=== PATIENT | male | born 1960 | race African-American/Black ===

== ENCOUNTER 2016-12-05 08:41 | Inpatient (IN) | payer BC ==
[~2016-12-05] VITALS: Ht 167.6 cm; Wt 64.9 kg
[2016-12-05 08:41] VITALS: BP 184/102; PULSE 68; RESP 15; TEMP 97.7; O2SAT 100
[2016-12-05] MEDS ORDERED: VALS320T10 PO (08:49)
[2016-12-05] MEDS ORDERED: NACL 0.9% 1,000 ML IV ONE (08:51)
[2016-12-05 09:13] LABS: BASOPHILS % (AUTO) 0.7 % (0.0-2.0); EOSINOPHILS % (AUTO) 0.9 % (0.0-4.0); HEMATOCRIT 42.1 % (36-54); HEMOGLOBIN 14.3 g/dL (14.0-18.0); LYMPHOCYTES # (AUTO) 1.2 K/uL (1.0-5.5); LYMPHOCYTES % (AUTO) 30.8 % (20.5-51.5); MEAN CORPUSCULAR HEMOGLOBIN 32 pg (27-31); MEAN CORPUSCULAR HGB CONC 34 % (32-36); MEAN CORPUSCULAR VOLUME 94 fL (79.0-98.0); MONOCYTES # (AUTO) 0.3 K/uL (0.0-1.0); MONOCYTES % (AUTO) 6.7 % (1.7-9.3); NEUTROPHILS # (AUTO) 2.5 K/uL (1.8-7.7); NEUTROPHILS % (AUTO) 60.9 % (40.0-70.0); PLATELET COUNT (AUTO) 131 K/uL (130-430); RED BLOOD CELL COUNT(AUTO) 4.46 MIL/uL (4.2-6.2); RED CELL DISTRIBUTION WIDTH 12.5 % (9.0-15.0)
[2016-12-05 09:21] LABS: CALCIUM 9.2 mg/dL (8.4-11.0); CREATININE 1.12 mg/dL (0.55-1.30); POTASSIUM 3.7 mmol/L (3.5-5.1)
[2016-12-05 09:24] LABS: INR 1.4 (0.80-1.20)
[2016-12-05 09:27] LABS: ALBUMIN 3.2 g/dL (3.4-4.8); TOTAL BILIRUBIN 1.4 mg/dL (0.0-1.0); TOTAL PROTEIN, SERUM 7.7 g/dL (6.4-8.3)
[2016-12-05 09:50] LABS: BILIRUBIN,URINE NEGATIVE (NEGATIVE); BLOOD, URINE NEGATIVE (NEGATIVE); CLARITY/URINE CLEAR (CLEAR); COLOR,URINE YELLOW (YELLOW); GLUCOSE,URINE NEGATIVE (NEGATIVE); KETONES,URINE NEGATIVE (NEGATIVE); LEUKOCYTE ESTERASE ,URINE NEGATIVE (NEGATIVE); NITRITE, URINE NEGATIVE (NEGATIVE); PROTEIN URINE NEGATIVE (NEGATIVE); UROBILINOGEN,URINE 0.2 (0.2-1.0)
[2016-12-05] MEDS ORDERED: ONDANSETRON HCL 4 MG/2 ML VIAL IVP PRN (11:30)
[2016-12-05] MEDS: D5/0.45 NS 1,000 ML IV SCH ×2 (11:50→23:06)
[2016-12-05 16:20] VITALS: BP 170/91; PULSE 71; RESP 16; TEMP 98.2; O2SAT 100
[2016-12-05 19:50] VITALS: BP 160/93; PULSE 75; RESP 16; TEMP 98.2; O2SAT 100
[2016-12-06] VITALS: BP 177/90; PULSE 63; RESP 17; TEMP 97.4; O2SAT 99
[2016-12-06] MEDS: ENALAPRILAT DIHYDRATE 1.25 MG/ML VIAL IVP PRN ×2 (00:53→23:02)
[2016-12-06 03:52] VITALS: BP 183/92; PULSE 64; RESP 17; TEMP 97.6; O2SAT 100
[2016-12-06 07:16] LABS: INR 1.3 (0.80-1.20); PROTHROMBIN TIME 13.8 SECS (9.5-12.5)
[2016-12-06 07:21] LABS: ALBUMIN 2.8 g/dL (3.4-4.8); CALCIUM 8.3 mg/dL (8.4-11.0); CREATININE 1.09 mg/dL (0.55-1.30); POTASSIUM 3.4 mmol/L (3.5-5.1); TOTAL BILIRUBIN 1.6 mg/dL (0.0-1.0); TOTAL PROTEIN, SERUM 6.9 g/dL (6.4-8.3)
[2016-12-06 07:30] LABS: BASOPHILS % (AUTO) 0.6 % (0.0-2.0); EOSINOPHILS # (AUTO) 0.1 K/uL (0.0-0.4); EOSINOPHILS % (AUTO) 2.2 % (0.0-4.0); HEMATOCRIT 37.2 % (36-54); HEMOGLOBIN 13.2 g/dL (14.0-18.0); LYMPHOCYTES # (AUTO) 1.4 K/uL (1.0-5.5); LYMPHOCYTES % (AUTO) 32.5 % (20.5-51.5); MEAN CORPUSCULAR HEMOGLOBIN 33 pg (27-31); MEAN CORPUSCULAR HGB CONC 36 % (32-36); MEAN CORPUSCULAR VOLUME 92 fL (79.0-98.0); MONOCYTES # (AUTO) 0.4 K/uL (0.0-1.0); MONOCYTES % (AUTO) 9.7 % (1.7-9.3); NEUTROPHILS # (AUTO) 2.6 K/uL (1.8-7.7); PLATELET COUNT (AUTO) 112 K/uL (130-430); RED BLOOD CELL COUNT(AUTO) 4.03 MIL/uL (4.2-6.2); RED CELL DISTRIBUTION WIDTH 12.4 % (9.0-15.0); WHITE BLOOD COUNT (AUTO) 4.5 K/uL (4.8-10.8)
[2016-12-06 08:00] VITALS: BP 163/94; PULSE 62; RESP 18; TEMP 99; O2SAT 98
[2016-12-06] MEDS: VALSARTAN 160 MG TABLET (DIOVAN) PO SCH (08:20)
[2016-12-06] MEDS ORDERED: cloNIDine HCL 0.2 MG/24 HR PATCH.TDWK TD SCH (09:00)
[2016-12-06] MEDS: D5/0.45 NS 1,000 ML IV SCH ×2 (09:04→17:30)
[2016-12-06 09:47] VITALS: BP 163/94; PULSE 62; RESP 16; TEMP 99; O2SAT 98
[2016-12-06] MEDS: MIDAZOLAM HCL 5 MG/5 ML VIAL ONE ×4 (10:47→11:42)
[2016-12-06] MEDS: MEPERIDINE HCL/PF 100 MG/ML AMP ONE ×2 (10:47→11:42)
[2016-12-06] MEDS ORDERED: PANTOPRAZOLE SODIUM 40 MG/VIAL (PROTONIX) IVP ONE (11:15)
[2016-12-06] MEDS: metroNIDAZOLE 500 MG TABLET PO SCH ×3 (12:08→23:43)
[2016-12-06 12:55] VITALS: Ht 167.6 cm; Wt 64.9 kg
[2016-12-06 16:00] VITALS: BP 142/86; PULSE 83; RESP 21; TEMP 98.4; O2SAT 97
[2016-12-06 20:00] VITALS: BP 163/82; PULSE 68; RESP 18; TEMP 98.6; O2SAT 99
[2016-12-07 00:33] VITALS: BP 148/88; PULSE 63; RESP 20; TEMP 97.8; O2SAT 100
[2016-12-07 04:27] VITALS: BP 155/85; PULSE 58; RESP 20; TEMP 97.9; O2SAT 100
[2016-12-07] MEDS: metroNIDAZOLE 500 MG TABLET PO SCH (06:36)
[2016-12-07 07:19] LABS: BASOPHILS % (AUTO) 0.7 % (0.0-2.0); EOSINOPHILS # (AUTO) 0.2 K/uL (0.0-0.4); EOSINOPHILS % (AUTO) 2.2 % (0.0-4.0); HEMATOCRIT 40.1 % (36-54); HEMOGLOBIN 13.8 g/dL (14.0-18.0); LYMPHOCYTES # (AUTO) 2.1 K/uL (1.0-5.5); LYMPHOCYTES % (AUTO) 29.8 % (20.5-51.5); MEAN CORPUSCULAR HEMOGLOBIN 32 pg (27-31); MEAN CORPUSCULAR HGB CONC 34 % (32-36); MEAN CORPUSCULAR VOLUME 94 fL (79.0-98.0); MONOCYTES # (AUTO) 0.7 K/uL (0.0-1.0); MONOCYTES % (AUTO) 9.4 % (1.7-9.3); NEUTROPHILS % (AUTO) 57.9 % (40.0-70.0); PLATELET COUNT (AUTO) 112 K/uL (130-430); RED BLOOD CELL COUNT(AUTO) 4.27 MIL/uL (4.2-6.2); RED CELL DISTRIBUTION WIDTH 12.4 % (9.0-15.0)
[2016-12-07 07:57] VITALS: BP 148/97; PULSE 85; RESP 18; TEMP 97.8; O2SAT 100
[2016-12-07 08:02] LABS: BILIRUBIN,DIRECT 0.5 mg/dL (0.0-0.3); CALCIUM 8.7 mg/dL (8.4-11.0); CREATININE 0.92 mg/dL (0.55-1.30); POTASSIUM 3.7 mmol/L (3.5-5.1); TOTAL BILIRUBIN 1.4 mg/dL (0.0-1.0); TOTAL PROTEIN, SERUM 6.7 g/dL (6.4-8.3)
[2016-12-07 08:21] VITALS: BP 148/97; PULSE 85; RESP 18; TEMP 97.8; O2SAT 100
[2016-12-07] MEDS: VALSARTAN 160 MG TABLET (DIOVAN) PO SCH (08:56)
[2016-12-07] MEDS ORDERED: PANTOPRAZOLE SODIUM 40 MG/VIAL (PROTONIX) IVP SCH (09:00)
[2016-12-07 09:09] LABS: HEPATITIS A AB, IgM Negative (Negative); HEPATITIS B CORE AB, IgM Negative (Negative); HEPATITIS B SURFACE AG Negative (Negative)
[2016-12-07 12:42] VITALS: BP 152/88; PULSE 69; RESP 16; TEMP 99.3; O2SAT 99
[2016-12-07] MEDS ORDERED: METR500T PO (12:59)
[2016-12-07] MEDS ORDERED: PRO40 PO (12:59)
[2016-12-07] MEDS ORDERED: LACT1CAP55 PO (13:01)
[2016-12-07 13:05] VITALS: BP 152/88; PULSE 69; RESP 16; TEMP 99.3; O2SAT 99
[2016-12-07 13:36] LABS: FERRITIN 2357 ng/mL (30-400)
== END 2016-12-07 13:45 | disposition home or self-care (01) | DRG 372 ==
LOC: SED 08:41 → SMU 10:28
PROVIDERS: ADMIT Internal Medicine; ATTEND Internal Medicine
PROC: 0DB68ZX Excision of Stomach, Via Natural or Artificial Opening Endoscopic, Diagnostic (ICD-10-PCS; 2016-12-06)
PROC: 0DB98ZX Excision of Duodenum, Via Natural or Artificial Opening Endoscopic, Diagnostic (ICD-10-PCS; principal; 2016-12-06 10:45)
DX: A04.7 Enterocolitis due to Clostridium difficile (principal); E44.0 Moderate protein-calorie malnutrition; K29.00 Acute gastritis without bleeding; E11.9 Type 2 diabetes mellitus without complications; I10 Essential (primary) hypertension; K22.2 Esophageal obstruction
CPT/HCPCS: 36415; 43239; 76700-TC; 80048; 80053; 80074; 80076; 81003; 82105; 82150-TC; 82728; 83690-TC; 85025; 85610-TC; 85730-TC; 87081; 87230-TC; 88305; 88312; 88313; 96360; 99285; C9113; J2175; J2250; J7030

== ENCOUNTER 2017-03-24 21:03 | Emergency (ER) | payer BC ==
[~2017-03-24] VITALS: Ht 167.6 cm; Wt 59.0 kg
[2017-03-24 21:03] VITALS: BP_SYST 159
[~2017-03-24 21:03] MED LIST: LACT1CAP55 PO; METR500T PO; PRO40 PO; VALS320T10 PO
[2017-03-24] MEDS ORDERED: L.RH1CAP PO (21:11)
[2017-03-24 21:42] LABS: BASOPHILS # (AUTO) 0.1 K/uL (0.0-0.2); BASOPHILS % (AUTO) 1.5 % (0.0-2.0); EOSINOPHILS # (AUTO) 0.1 K/uL (0.0-0.4); EOSINOPHILS % (AUTO) 1.2 % (0.0-4.0); HEMATOCRIT 32.9 % (36-54); HEMOGLOBIN 11.2 g/dL (14.0-18.0); LYMPHOCYTES # (AUTO) 2.1 K/uL (1.0-5.5); LYMPHOCYTES % (AUTO) 48.6 % (20.5-51.5); MEAN CORPUSCULAR HEMOGLOBIN 32 pg (27-31); MEAN CORPUSCULAR HGB CONC 34 % (32-36); MEAN CORPUSCULAR VOLUME 95 fL (79.0-98.0); MONOCYTES # (AUTO) 0.4 K/uL (0.0-1.0); MONOCYTES % (AUTO) 8.7 % (1.7-9.3); NEUTROPHILS # (AUTO) 1.7 K/uL (1.8-7.7); PLATELET COUNT (AUTO) 151 K/uL (130-430); RED BLOOD CELL COUNT(AUTO) 3.46 MIL/uL (4.2-6.2); RED CELL DISTRIBUTION WIDTH 19.1 % (9.0-15.0); WHITE BLOOD COUNT (AUTO) 4.4 K/uL (4.8-10.8)
[2017-03-24 21:45] LABS: CALCIUM 8.4 mg/dL (8.4-11.0); CREATININE 1.19 mg/dL (0.55-1.30); POTASSIUM 3.6 mmol/L (3.5-5.1)
[2017-03-24 21:50] LABS: ALBUMIN 2.9 g/dL (3.4-4.8); TOTAL BILIRUBIN 1.5 mg/dL (0.0-1.0); TOTAL PROTEIN, SERUM 6.8 g/dL (6.4-8.3)
[2017-03-24] MEDS ORDERED: NACL 0.9% 1,000 ML IV ONE (22:15)
[2017-03-24 22:22] LABS: BILIRUBIN,URINE NEGATIVE (NEGATIVE); BLOOD, URINE NEGATIVE (NEGATIVE); CLARITY/URINE CLEAR (CLEAR); COLOR,URINE YELLOW (YELLOW); GLUCOSE,URINE 3+ (NEGATIVE); KETONES,URINE TRACE (NEGATIVE); LEUKOCYTE ESTERASE ,URINE NEGATIVE (NEGATIVE); NITRITE, URINE NEGATIVE (NEGATIVE); PROTEIN URINE TRACE (NEGATIVE)
[2017-03-24 22:25] LABS: RBC,URINE 0-3 /HPF (0-3); WBC,URINE 0-3 /HPF (0-3)
[2017-03-24 22:26] LABS: BACTERIA,URINE FEW /HPF (None Seen); FINE GRANULAR CASTS,URINE 0-10 /LPF (None Seen)
[2017-03-24 22:27] LABS: MUCUS,URINE None Seen /LPF (None Seen)
[2017-03-24 22:29] LABS: INR 1.4 (0.80-1.20); PROTHROMBIN TIME 14.8 SECS (9.5-12.5)
[2017-03-24 22:52] VITALS: BP_SYST 125
[2017-03-24 23:08] LABS: BARBITURATE, URINE NEGATIVE (NEG <=200); BENZODIAZEPINE, URINE NEGATIVE (NEG <=150); CANNABINOID, URINE NEGATIVE (NEG <=50); COCAINE, URINE NEGATIVE (NEG <=150); METHAMPHETAMINES SCREEN,URINE NEGATIVE (NEG <=500); OPIATE, URINE NEGATIVE (NEG <=100); PHENCYCLIDINE SCREEN,URINE NEGATIVE (NEG <=25); UR TRICYCLIC ANTIDEPRESSANTS NEGATIVE (NEG <=300); URINE AMPHETAMINE NEGATIVE (NEG <=500); URINE METHADONE NEGATIVE (NEG <=200); URINE OXYCODONE SCREEN NEGATIVE (NEG <=100); URINE PROPOXYPHENE SCREEN NEGATIVE (NEG <=300)
== END 2017-03-24 22:52 | disposition home or self-care (01) ==
LOC: SED 21:03
DX: K70.10 Alcoholic hepatitis without ascites (principal); R53.1 Weakness; F10.129 Alcohol abuse with intoxication, unspecified; E11.9 Type 2 diabetes mellitus without complications; I10 Essential (primary) hypertension; Y90.7 Blood alcohol level of 200-239 mg/100 ml
CPT/HCPCS: 36415; 71010; 80053; 80307; 81000; 82140; 85025; 85610; 85730; 96360; 99285; G0482; J7030

== ENCOUNTER 2018-08-05 09:47 | Inpatient (IN) | payer BC ==
[~2018-08-05] VITALS: Ht 167.6 cm; Wt 58.1 kg
[~2018-08-05 09:47] MED LIST changes: +CULTURELLE CAP1 EACH PO; +L.RH1CAP PO; -LACT1CAP55 PO; -METR500T PO; -PRO40 PO; -VALS320T10 PO; +VALS320T2 PO
[2018-08-05 09:53] VITALS: BP_SYST 142
[2018-08-05 10:14] LABS: BASOPHILS # (AUTO) 0.1 K/uL (0.0-0.2); BASOPHILS % (AUTO) 1.1 % (0.0-2.0); EOSINOPHILS % (AUTO) 0.1 % (0.0-4.0); HEMATOCRIT 36.6 % (36-54); HEMOGLOBIN 11.8 g/dL (14.0-18.0); LYMPHOCYTES # (AUTO) 1.1 K/uL (1.0-5.5); LYMPHOCYTES % (AUTO) 11.1 % (20.5-51.5); MEAN CORPUSCULAR HEMOGLOBIN 32 pg (27-31); MEAN CORPUSCULAR HGB CONC 32 % (32-36); MEAN CORPUSCULAR VOLUME 98 fL (79.0-98.0); MONOCYTES # (AUTO) 0.8 K/uL (0.0-1.0); MONOCYTES % (AUTO) 8.4 % (1.7-9.3); NEUTROPHILS # (AUTO) 7.7 K/uL (1.8-7.7); NEUTROPHILS % (AUTO) 79.3 % (40.0-70.0); PLATELET COUNT (AUTO) 117 K/uL (130-430); RED BLOOD CELL COUNT(AUTO) 3.75 MIL/uL (4.2-6.2); RED CELL DISTRIBUTION WIDTH 12.9 % (9.0-15.0); WHITE BLOOD COUNT (AUTO) 9.7 K/uL (4.8-10.8)
[2018-08-05 10:25] LABS: CALCIUM 8.6 mg/dL (8.4-11.0); CREATININE 0.79 mg/dL (0.55-1.30)
[2018-08-05 10:30] LABS: INR 1.1 (0.80-1.20); PROTHROMBIN TIME 10.9 SECS (9.5-12.5)
[2018-08-05 10:31] LABS: ALBUMIN 2.9 g/dL (3.4-4.8); TOTAL BILIRUBIN 0.9 mg/dL (0.0-1.0)
[2018-08-05] MEDS ORDERED: POTASSIUM CHLORIDE 20 MEQ TAB.PRT.SR PO ONE ×2 (11:30→14:00)
[2018-08-05] MEDS ORDERED: ASPI-1155 PO (12:48)
[2018-08-05] MEDS ORDERED: LOSA100T3 PO (12:48)
[2018-08-05] MEDS ORDERED: IND25 PO (12:48)
[2018-08-05] MEDS ORDERED: POTA8TAB4 PO (12:48)
[2018-08-05] MEDS ORDERED: COLC0.6T67 PO (12:48)
[2018-08-05] MEDS ORDERED: CANA100T PO (12:48)
[2018-08-05] MEDS ORDERED: AMLO5TAB4 PO (12:48)
[2018-08-05 13:02] VITALS: BP_SYST 146
[2018-08-05 14:24] VITALS: BP_SYST 151
[2018-08-05] MEDS: INSULIN REGULAR, HUMAN 100 UNITS/ML, 10 ML VIAL (novoLIN R) SUBCUT PRN ×2 (15:56→22:06)
[2018-08-05 16:00] VITALS: BP_SYST 150
[2018-08-05] MEDS ORDERED: LORazepam 1 MG TABLET PO PRN (17:45)
[2018-08-05] MEDS ORDERED: cloNIDine HCL 0.1 MG TABLET PO PRN (17:45)
[2018-08-05] MEDS ORDERED: amLODIPine BESYLATE 5 MG TABLET PO ONE (17:45)
[2018-08-05] MEDS ORDERED: IBUPROFEN 800 MG TABLET PO PRN (18:00)
[2018-08-05] MEDS ORDERED: ONDANSETRON HCL 4 MG/2 ML VIAL IVP PRN (18:15)
[2018-08-05 20:00] VITALS: BP_SYST 154
[2018-08-05] MEDS: PIPERACILLIN/TAZO 3.375/DEX-IS 50 ML IV SCH (20:13)
[2018-08-05 21:20] LABS: BILIRUBIN,URINE NEGATIVE (NEGATIVE); CLARITY/URINE CLEAR (CLEAR); COLOR,URINE YELLOW (YELLOW); GLUCOSE,URINE NEGATIVE (NEGATIVE); KETONES,URINE NEGATIVE (NEGATIVE); LEUKOCYTE ESTERASE ,URINE NEGATIVE (NEGATIVE); NITRITE, URINE NEGATIVE (NEGATIVE); PROTEIN URINE NEGATIVE (NEGATIVE)
[2018-08-05 21:23] LABS: BLOOD, URINE TRACE (NEGATIVE)
[2018-08-05 21:28] LABS: BACTERIA,URINE RARE /HPF (None Seen); RBC,URINE 0-3 /HPF (0-3); WBC,URINE 0-3 /HPF (0-3)
[2018-08-05 21:30] LABS: BARBITURATE, URINE NEGATIVE (NEG <=200); BENZODIAZEPINE, URINE NEGATIVE (NEG <=150); CANNABINOID, URINE POSITIVE (NEG <=50); COCAINE, URINE NEGATIVE (NEG <=150); METHAMPHETAMINES SCREEN,URINE NEGATIVE (NEG <=500); OPIATE, URINE NEGATIVE (NEG <=100); PHENCYCLIDINE SCREEN,URINE NEGATIVE (NEG <=25); UR TRICYCLIC ANTIDEPRESSANTS NEGATIVE (NEG <=300); URINE AMPHETAMINE NEGATIVE (NEG <=500); URINE METHADONE NEGATIVE (NEG <=200); URINE OXYCODONE SCREEN NEGATIVE (NEG <=100); URINE PROPOXYPHENE SCREEN NEGATIVE (NEG <=300)
[2018-08-05] MEDS: FAMOTIDINE 20 MG TABLET PO SCH (22:01)
[2018-08-05] MEDS: chlordiazePOXIDE HCL 25 MG CAPSULE PO SCH (22:01)
[2018-08-05] MEDS: ENOXAPARIN SODIUM 30 MG/0.3 ML SYRINGE SUBCUT SCH (22:03)
[2018-08-06 00:07] VITALS: BP_SYST 143
[2018-08-06] MEDS: PIPERACILLIN/TAZO 3.375/DEX-IS 50 ML IV SCH ×4 (00:27→17:04)
[2018-08-06 06:59] LABS: BASOPHILS % (AUTO) 0.5 % (0.0-2.0); EOSINOPHILS % (AUTO) 0.4 % (0.0-4.0); HEMATOCRIT 37.8 % (36-54); HEMOGLOBIN 12.3 g/dL (14.0-18.0); LYMPHOCYTES # (AUTO) 1.4 K/uL (1.0-5.5); LYMPHOCYTES % (AUTO) 14.1 % (20.5-51.5); MEAN CORPUSCULAR HEMOGLOBIN 32 pg (27-31); MEAN CORPUSCULAR HGB CONC 33 % (32-36); MEAN CORPUSCULAR VOLUME 99 fL (79.0-98.0); MONOCYTES % (AUTO) 9.6 % (1.7-9.3); NEUTROPHILS # (AUTO) 7.5 K/uL (1.8-7.7); NEUTROPHILS % (AUTO) 75.4 % (40.0-70.0); PLATELET COUNT (AUTO) 124 K/uL (130-430); RED BLOOD CELL COUNT(AUTO) 3.82 MIL/uL (4.2-6.2); WHITE BLOOD COUNT (AUTO) 9.9 K/uL (4.8-10.8)
[2018-08-06 07:35] LABS: CALCIUM 9.3 mg/dL (8.4-11.0); CREATININE 0.95 mg/dL (0.55-1.30); POTASSIUM 3.8 mmol/L (3.5-5.1)
[2018-08-06 07:45] VITALS: BP_SYST 140
[2018-08-06 07:54] LABS: THYROID STIMULATING HORMONE 1.61 uIu/mL (0.36-3.74)
[2018-08-06] MEDS: ASPIRIN 81 MG TAB.CHEW PO SCH (09:12)
[2018-08-06] MEDS: POTASSIUM CHLORIDE 20 MEQ TAB.PRT.SR PO SCH (09:12)
[2018-08-06] MEDS: chlordiazePOXIDE HCL 25 MG CAPSULE PO SCH ×3 (09:12→20:25)
[2018-08-06] MEDS: FAMOTIDINE 20 MG TABLET PO SCH ×2 (09:13→20:25)
[2018-08-06] MEDS: amLODIPine BESYLATE 5 MG TABLET PO SCH (09:13)
[2018-08-06] MEDS: LOSARTAN POTASSIUM 50 MG TABLET (COZAAR) PO SCH (09:14)
[2018-08-06] MEDS: CANAGLIFLOZIN 100 MG TABLET PO SCH (09:15)
[2018-08-06 12:02] VITALS: BP_SYST 115
[2018-08-06 16:02] VITALS: BP_SYST 114
[2018-08-06 19:05] VITALS: BP_SYST 118
[2018-08-06] MEDS: ENOXAPARIN SODIUM 30 MG/0.3 ML SYRINGE SUBCUT SCH (20:27)
[2018-08-06] MEDS: INSULIN REGULAR, HUMAN 100 UNITS/ML, 10 ML VIAL (novoLIN R) SUBCUT PRN (20:31)
[2018-08-06 23:23] VITALS: BP_SYST 125
[2018-08-07] MEDS: PIPERACILLIN/TAZO 3.375/DEX-IS 50 ML IV SCH ×3 (00:22→11:27)
[2018-08-07 07:42] VITALS: BP_SYST 123
[2018-08-07] MEDS: POTASSIUM CHLORIDE 20 MEQ TAB.PRT.SR PO SCH (08:11)
[2018-08-07] MEDS: chlordiazePOXIDE HCL 25 MG CAPSULE PO SCH (08:11)
[2018-08-07] MEDS: ASPIRIN 81 MG TAB.CHEW PO SCH (08:12)
[2018-08-07] MEDS: FAMOTIDINE 20 MG TABLET PO SCH (08:12)
[2018-08-07] MEDS: amLODIPine BESYLATE 5 MG TABLET PO SCH (08:12)
[2018-08-07] MEDS: LOSARTAN POTASSIUM 50 MG TABLET (COZAAR) PO SCH (08:12)
[2018-08-07] MEDS: CANAGLIFLOZIN 100 MG TABLET PO SCH (08:13)
[2018-08-07 11:42] VITALS: BP_SYST 110
[2018-08-07 14:01] VITALS: BP_SYST 110
[2018-08-07] MEDS ORDERED: AMOX-426 PO (14:10)
== END 2018-08-07 14:30 | disposition home or self-care (01) | DRG 308 ==
LOC: SED 09:47 → STU 12:35
PROVIDERS: ADMIT Internal Medicine; ATTEND Internal Medicine
DX: I49.9 Cardiac arrhythmia, unspecified (principal); E43 Unspecified severe protein-calorie malnutrition; R55 Syncope and collapse; M10.9 Gout, unspecified; D64.9 Anemia, unspecified; D69.6 Thrombocytopenia, unspecified; E03.9 Hypothyroidism, unspecified; E11.9 Type 2 diabetes mellitus without complications; E87.6 Hypokalemia; I10 Essential (primary) hypertension; F10.10 Alcohol abuse, uncomplicated; K02.9 Dental caries, unspecified; K04.7 Periapical abscess without sinus; Z68.20 Body mass index [BMI] 20.0-20.9, adult; Z79.899 Other long term (current) drug therapy
CPT/HCPCS: 36415; 70450-TC; 70486-TC; 71045; 72125-TC; 80048; 80053; 80307; 81000-TC; 82550-TC; 82962; 84439; 84443-TC; 84484; 85025; 85610-TC; 85730-TC; 93005; 93306; 99285; G0482; J1650; J1815; J2543; J7050

== ENCOUNTER 2020-10-05 20:49 | Emergency (ER) | payer BC ==
[~2020-10-05] VITALS: Ht 167.6 cm; Wt 70.3 kg
[~2020-10-05 20:49] MED LIST changes: +AMLO5TAB4 PO; +AMOX-426 PO; +ASPI-1155 PO; +CANA100T PO; +COLC0.6T67 PO; -CULTURELLE CAP1 EACH PO; +INDO-12 PO; -L.RH1CAP PO; +LOSA100T3 PO; +POTA8TAB4 PO; -VALS320T2 PO
[2020-10-05 21:10] VITALS: BP_SYST 142
--- NOTE | 2020-10-05 21:10 | NUR ---
PT TO REMAIN IN CARE AMBULANCE UNTIL ED BED AVAILABLE
--- NOTE | 2020-10-05 21:12 | NUR ---
BS 196, Dr. Mckinney notified.
--- NOTE | 2020-10-05 21:12 | NUR ---
ED MD CAZARES EVALUATING PT IN AMBULANCE
[2020-10-05] MEDS ORDERED: INSULIN REGULAR, HUMAN 10 UNITS/0.1 ML INJ SUBCUT ONE ×2 (21:15→21:45)
[2020-10-05 21:46] LABS: BASOPHILS # (AUTO) 0.1 K/uL (0.0-0.2); BASOPHILS % (AUTO) 1.7 % (0.0-2.0); EOSINOPHILS # (AUTO) 0.1 K/uL (0.0-0.4); EOSINOPHILS % (AUTO) 2.6 % (0.0-4.0); HEMATOCRIT 38.7 % (36-54); HEMOGLOBIN 12.9 g/dL (14.0-18.0); LYMPHOCYTES % (AUTO) 41.8 % (20.5-51.5); MEAN CORPUSCULAR HEMOGLOBIN 35 pg (27-31); MEAN CORPUSCULAR HGB CONC 33 % (32-36); MEAN CORPUSCULAR VOLUME 105 fL (79.0-98.0); MONOCYTES # (AUTO) 0.6 K/uL (0.0-1.0); MONOCYTES % (AUTO) 11.7 % (1.7-9.3); NEUTROPHILS % (AUTO) 42.2 % (40.0-70.0); PLATELET COUNT (AUTO) 144 K/uL (130-430); RED CELL DISTRIBUTION WIDTH 14.9 % (9.0-15.0); WHITE BLOOD COUNT (AUTO) 4.8 K/uL (4.8-10.8)
[2020-10-05 22:01] LABS: ACETONE, SERUM NEGATIVE (NEGATIVE); ANION GAP 14 (5-15); CALCIUM 8.7 mg/dL (8.4-11.0); CHLORIDE 105 mmol/L (98-107); CREATININE 1.23 mg/dL (0.55-1.30); GLUCOSE 202 mg/dL (70-99); POTASSIUM 3.5 mmol/L (3.5-5.1); SODIUM SERUM 147 mmol/L (136-145); UREA NITROGEN, BLOOD 13 mg/dL (8-21)
[2020-10-05 22:09] LABS: ALANINE AMINOTRANSFERASE 53 U/L (12-78); ALBUMIN 3.2 g/dL (3.4-4.8); ALCOHOL, BLOOD 361 mg/dL (<10); ASPARTATE AMINOTRANSFERASE 92 U/L (10-37); TOTAL BILIRUBIN 0.4 mg/dL (0.0-1.0)
--- NOTE | 2020-10-05 22:22 | NUR ---
BS 158.
--- NOTE | 2020-10-05 23:45 | NUR ---
SPOKE WITH PATIENTS SPOUSE WHO ASKED FOR A CAB TO BE CALLED TO BRING PT HOME. PT ALERT AND ORIENTED AND UNABLE TO HAVE FAMILY COME GET HIM.
--- NOTE | 2020-10-05 23:50 | NUR ---
PT GAIT STEADY, PT TO BE DISCHARGED, WAITING FOR CAB
[2020-10-05 23:55] VITALS: BP_SYST 142
--- NOTE | 2020-10-05 23:55 | NUR ---
Patient given written and verbal discharge instructions and verbalizes understanding. DR. FLORIAN LYONS MD discussed with patient the results and treatment provided. Patient in stable condition. ID arm band removed. Patient educated on pain management and to follow up with PMD. Pain Scale 0/10. Opportunity for questions provided and answered. Medication side effect fact sheet provided.
[2020-10-06] MEDS ORDERED: FAMOTIDINE 20 MG TABLET ONE (09:00)
[2020-10-06] MEDS ORDERED: DEXAMETHASONE SOD PHOSPHATE 10 MG/ML VIAL ONE (09:00)
== END 2020-10-05 23:55 | disposition home or self-care (01) ==
LOC: SED 20:49
DX: F10.129 Alcohol abuse with intoxication, unspecified (principal); E11.65 Type 2 diabetes mellitus with hyperglycemia; I10 Essential (primary) hypertension; Z79.899 Other long term (current) drug therapy
CPT/HCPCS: 70450; 36415; 76376; 80053; 82009; 85025; 96372; 99284; G0482; J1815; J1100

== ENCOUNTER 2021-01-04 08:26 | Emergency (ER) | payer BC ==
[~2021-01-04] VITALS: Ht 165.1 cm; Wt 72.6 kg
[2021-01-04 08:26] VITALS: BP_SYST 144
[2021-01-04 09:21] LABS: BASOPHILS # (AUTO) 0.1 K/uL (0.0-0.2); BASOPHILS % (AUTO) 2.8 % (0.0-2.0); EOSINOPHILS # (AUTO) 0.1 K/uL (0.0-0.4); EOSINOPHILS % (AUTO) 1.8 % (0.0-4.0); HEMATOCRIT 37.7 % (36-54); HEMOGLOBIN 12.5 g/dL (14.0-18.0); LYMPHOCYTES # (AUTO) 1.4 K/uL (1.0-5.5); LYMPHOCYTES % (AUTO) 34.9 % (20.5-51.5); MEAN CORPUSCULAR HEMOGLOBIN 34 pg (27-31); MEAN CORPUSCULAR HGB CONC 33 % (32-36); MEAN CORPUSCULAR VOLUME 103 fL (79.0-98.0); MONOCYTES # (AUTO) 0.4 K/uL (0.0-1.0); NEUTROPHILS # (AUTO) 1.9 K/uL (1.8-7.7); NEUTROPHILS % (AUTO) 49.5 % (40.0-70.0); PLATELET COUNT (AUTO) 114 K/uL (130-430); RED BLOOD CELL COUNT(AUTO) 3.67 MIL/uL (4.2-6.2); RED CELL DISTRIBUTION WIDTH 13.7 % (9.0-15.0); WHITE BLOOD COUNT (AUTO) 3.9 K/uL (4.8-10.8)
[2021-01-04 09:45] LABS: CALCIUM 8.8 mg/dL (8.4-11.0); CREATININE 1.22 mg/dL (0.55-1.30); POTASSIUM 3.7 mmol/L (3.5-5.1); TOTAL BILIRUBIN 1.1 mg/dL (0.0-1.0)
[2021-01-04 09:46] LABS: ALBUMIN 3.3 g/dL (3.4-4.8)
[2021-01-04 14:46] VITALS: BP_SYST 154
== END 2021-01-04 14:46 | disposition home or self-care (01) ==
LOC: SED 08:26
DX: R55 Syncope and collapse (principal); F10.129 Alcohol abuse with intoxication, unspecified; I10 Essential (primary) hypertension; E11.9 Type 2 diabetes mellitus without complications; Z79.899 Other long term (current) drug therapy
CPT/HCPCS: 36415; 70450; 71045; 76376; 80053; 82550; 83880; 84484; 85025; 93005; 99285; G0482

== ENCOUNTER 2021-07-21 12:37 | Emergency (ER) | payer SELFPAY ==
[~2021-07-21] VITALS: Ht 167.6 cm; Wt 63.5 kg
[2021-07-21 12:39] VITALS: BP_SYST 127
--- NOTE | 2021-07-21 13:04 | NUR ---
Patient to ER bed H1 to gown for evaluation. Side rails up.
[2021-07-21 13:05] LABS: BASOPHILS # (AUTO) 0.1 K/uL (0.0-0.2); BASOPHILS % (AUTO) 3.8 % (0.0-2.0); EOSINOPHILS # (AUTO) 0.1 K/uL (0.0-0.4); EOSINOPHILS % (AUTO) 2.9 % (0.0-4.0); HEMOGLOBIN 13.7 g/dL (14.0-18.0); LYMPHOCYTES # (AUTO) 1.9 K/uL (1.0-5.5); LYMPHOCYTES % (AUTO) 48.9 % (20.5-51.5); MEAN CORPUSCULAR HEMOGLOBIN 35 pg (27-31); MEAN CORPUSCULAR HGB CONC 33 % (32-36); MEAN CORPUSCULAR VOLUME 104 fL (79.0-98.0); MONOCYTES # (AUTO) 0.5 K/uL (0.0-1.0); MONOCYTES % (AUTO) 11.9 % (1.7-9.3); NEUTROPHILS # (AUTO) 1.3 K/uL (1.8-7.7); NEUTROPHILS % (AUTO) 32.5 % (40.0-70.0); PLATELET COUNT (AUTO) 121 K/uL (130-430); RED BLOOD CELL COUNT(AUTO) 3.93 MIL/uL (4.2-6.2); RED CELL DISTRIBUTION WIDTH 13.9 % (9.0-15.0); WHITE BLOOD COUNT (AUTO) 3.9 K/uL (4.8-10.8)
[2021-07-21 13:15] LABS: CALCIUM 9.2 mg/dL (8.4-11.0); CREATININE 1.24 mg/dL (0.55-1.30); POTASSIUM 3.2 mmol/L (3.5-5.1)
[2021-07-21 13:19] LABS: INR 1.2 (0.80-1.20); PROTHROMBIN TIME 12.1 SECS (9.5-12.5)
[2021-07-21 13:22] LABS: ALBUMIN 3.3 g/dL (3.4-4.8); TOTAL BILIRUBIN 0.9 mg/dL (0.0-1.0)
[2021-07-21 13:31] LABS: BILIRUBIN,URINE NEGATIVE (NEGATIVE); BLOOD, URINE NEGATIVE (NEGATIVE); CLARITY/URINE CLEAR (CLEAR); COLOR,URINE YELLOW (YELLOW); GLUCOSE,URINE 3+ (NEGATIVE); KETONES,URINE NEGATIVE (NEGATIVE); LEUKOCYTE ESTERASE ,URINE NEGATIVE (NEGATIVE); NITRITE, URINE NEGATIVE (NEGATIVE); PROTEIN URINE NEGATIVE (NEGATIVE)
[2021-07-21 13:46] LABS: BARBITURATE, URINE NEGATIVE (NEG <=200); BENZODIAZEPINE, URINE NEGATIVE (NEG <=150); CANNABINOID, URINE NEGATIVE (NEG <=50); COCAINE, URINE NEGATIVE (NEG <=150); METHAMPHETAMINES SCREEN,URINE NEGATIVE (NEG <=500); OPIATE, URINE NEGATIVE (NEG <=100); PHENCYCLIDINE SCREEN,URINE NEGATIVE (NEG <=25); UR TRICYCLIC ANTIDEPRESSANTS NEGATIVE (NEG <=300); URINE AMPHETAMINE NEGATIVE (NEG <=500); URINE METHADONE NEGATIVE (NEG <=200); URINE OXYCODONE SCREEN NEGATIVE (NEG <=100); URINE PROPOXYPHENE SCREEN NEGATIVE (NEG <=300)
--- NOTE | 2021-07-21 13:46 | NUR ---
RECEIVED PT, AWAKE, ALERT TO NAME ONLY. DENIES ANY PAIN AT THIS TIME. NO OBVIOUS DEFORMITY NOTED, NO LACERATIONS. PT DENIES ANY RECENT FALL OR ETOH INTAKE, JUST REPORTS MENTAL ILLNESS. PT CONFUSED, DOES NOT KNOW WHY HE IS HERE, STATES SENT HIM HERE TO SEE .
--- NOTE | 2021-07-21 13:53 | NUR ---
PER FINANCIAL ACCOUNTANT AND TRIAGE NURSE, PER FINANCIAL ACCOUNTANT, PT'S CALLED 911 BECAUSE HE FELL ON HIS BUTTOCKS AND REPORTED HE DRINKS EVERY DAY -ALL DAY. I ATTEMPTD TO CALL FROM HIS DEMOGRAPHIC DATA, BUT NUMBER IS DISCONNECTED. DANIAL GARCIA AND DR JORDAN NOTIFIED. SAFETY MEASURES IN PLACE, WAITING FOR DISPOSITION.
--- NOTE | 2021-07-21 15:54 | NUR ---
PT LAYING ON GURNEY, IN NAD. RESP EVEN AND UNLABORED, DENIES ANY PAIN.
--- NOTE | 2021-07-21 15:57 | NUR ---
MANAGER ENROLLMENT AT BEDSIDE FOR ADDITIONAL BLOOD TESTS.
[2021-07-21 16:45] LABS: C-REACTIVE PROTEIN QUANT < 0.2 mg/dL (0-0.5)
[2021-07-21 17:03] LABS: ALCOHOL, BLOOD 333 mg/dL (<10)
[2021-07-21 17:04] LABS: ACETAMINOPHEN < 1 ug/mL (1-30)
[2021-07-21 17:10] LABS: ACETONE, SERUM NEGATIVE (NEGATIVE)
--- NOTE | 2021-07-21 17:30 | NUR ---
Daughter called and reported that she wll be picking her Dad in an hour. Dr. Mcclelland notified.
[2021-07-21] MEDS ORDERED: LORA-259 PO (18:01)
--- NOTE | 2021-07-21 18:38 | NUR ---
PT WITH EYES CLOSED, IN NAD. RESP EVEN AN DUNLABORED. 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
--- NOTE | 2021-07-21 19:29 | NUR ---
Assumed care of patient at change of shift. Introduced self to patient. Patient daughter at bedside who was given aci and rx. Patient resting quietly. No acute distress noted. Vital signs within normal range. Patient given written and verbal discharge instructions and verbalizes understanding. ER MD discussed with patient the results and treatment provided. Patient in stable condition. ID arm band removed. Rx of ativan given. Patient educated on pain management and to follow up with PMD. Pain Scale 0. Opportunity for questions provided and answered. Medication side effect fact sheet provided.
[2021-07-21 19:30] VITALS: BP_SYST 156
[2021-07-23 08:29] LABS: BILIRUBIN,URINE NEGATIVE (NEGATIVE); BLOOD, URINE 1+ (NEGATIVE); CLARITY/URINE CLEAR (CLEAR); COLOR,URINE YELLOW (YELLOW); GLUCOSE,URINE 1+ (NEGATIVE); KETONES,URINE 1+ (NEGATIVE); LEUKOCYTE ESTERASE ,URINE NEGATIVE (NEGATIVE); NITRITE, URINE NEGATIVE (NEGATIVE); PROTEIN URINE NEGATIVE (NEGATIVE); UROBILINOGEN,URINE 0.2 (0.2-1.0)
[2021-07-23 08:48] LABS: BARBITURATE, URINE NEGATIVE (NEG <=200); BENZODIAZEPINE, URINE POSITIVE (NEG <=150); CANNABINOID, URINE NEGATIVE (NEG <=50); COCAINE, URINE NEGATIVE (NEG <=150); METHAMPHETAMINES SCREEN,URINE NEGATIVE (NEG <=500); OPIATE, URINE NEGATIVE (NEG <=100); PHENCYCLIDINE SCREEN,URINE NEGATIVE (NEG <=25); UR TRICYCLIC ANTIDEPRESSANTS NEGATIVE (NEG <=300); URINE AMPHETAMINE NEGATIVE (NEG <=500); URINE METHADONE NEGATIVE (NEG <=200); URINE OXYCODONE SCREEN NEGATIVE (NEG <=100); URINE PROPOXYPHENE SCREEN NEGATIVE (NEG <=300)
[2021-07-23 09:07] LABS: BACTERIA,URINE None Seen /HPF (None Seen); WBC,URINE NONE SEEN /HPF (0-3)
== END 2021-07-21 19:29 | disposition home or self-care (01) ==
LOC: SED 12:37
DX: F10.10 Alcohol abuse, uncomplicated (principal); I10 Essential (primary) hypertension; E11.9 Type 2 diabetes mellitus without complications; Z79.899 Other long term (current) drug therapy; Y90.8 Blood alcohol level of 240 mg/100 ml or more; W18.39XA Other fall on same level, initial encounter; Y93.89 Activity, other specified; Y92.89 Other specified places as the place of occurrence of the external cause; Y99.8 Other external cause status
CPT/HCPCS: 36415; 70450; 71045; 76376; 80053; 80307; 81000; 81003; 82009; 82140; 82550; 83605; 83880; 84484; 85025; 85610; 85730; 86140; 87040; 93005; 99285; G0480; G0481; G0482

== ENCOUNTER 2021-07-22 07:52 | Inpatient (IN) | payer OTHER, SELFPAY ==
[~2021-07-22] VITALS: Ht 167.6 cm; Wt 62.6 kg
[~2021-07-22 07:52] MED LIST changes: +LORA-259 PO
[2021-07-22 07:54] VITALS: BP_SYST 163
[2021-07-22] MEDS ORDERED: NACL 0.9% 1,000 ML IV ONE (08:15)
[2021-07-22 08:44] LABS: BASOPHILS # (AUTO) 0.1 K/uL (0.0-0.2); BASOPHILS % (AUTO) 2.3 % (0.0-2.0); EOSINOPHILS # (AUTO) 0.1 K/uL (0.0-0.4); EOSINOPHILS % (AUTO) 2.8 % (0.0-4.0); HEMATOCRIT 39.2 % (36-54); LYMPHOCYTES # (AUTO) 1.5 K/uL (1.0-5.5); LYMPHOCYTES % (AUTO) 41.7 % (20.5-51.5); MEAN CORPUSCULAR HEMOGLOBIN 35 pg (27-31); MEAN CORPUSCULAR HGB CONC 33 % (32-36); MEAN CORPUSCULAR VOLUME 106 fL (79.0-98.0); MONOCYTES # (AUTO) 0.5 K/uL (0.0-1.0); MONOCYTES % (AUTO) 13.9 % (1.7-9.3); NEUTROPHILS # (AUTO) 1.4 K/uL (1.8-7.7); NEUTROPHILS % (AUTO) 39.3 % (40.0-70.0); PLATELET COUNT (AUTO) 117 K/uL (130-430); RED BLOOD CELL COUNT(AUTO) 3.71 MIL/uL (4.2-6.2); RED CELL DISTRIBUTION WIDTH 13.6 % (9.0-15.0); WHITE BLOOD COUNT (AUTO) 3.7 K/uL (4.8-10.8)
[2021-07-22 09:05] LABS: CALCIUM 8.4 mg/dL (8.4-11.0); CREATININE 1.19 mg/dL (0.55-1.30)
[2021-07-22 09:08] LABS: ALBUMIN 3.1 g/dL (3.4-4.8)
[2021-07-22 09:09] LABS: POTASSIUM 2.9 mmol/L (3.5-5.1)
[2021-07-22] MEDS ORDERED: LORazepam 2 MG/ML VIAL IVP ONE (09:15)
[2021-07-22] MEDS ORDERED: POTASSIUM CHLORIDE 20 MEQ/PKT PACKET PO ONE (09:15)
[2021-07-22] MEDS ORDERED: FOLIC ACID 1 MG, THIAMINE HCL 100 MG, MAGNESIUM SULFATE 1 GM, MVI 10 ML in NACL 0.9% 1,... IV ONE (11:15)
[2021-07-22] MEDS ORDERED: THIAMINE HCL 100 MG, MAGNESIUM SULFATE 1 GM in NS 100 ML IV ONE (12:00)
[2021-07-22] MEDS ORDERED: FOLIC ACID 1 MG, MVI 10 ML in NACL 0.9% 1,000 ML IV ONE (12:00)
[2021-07-22 14:09] LABS: BILIRUBIN,URINE NEGATIVE (NEGATIVE); BLOOD, URINE 3+ (NEGATIVE); CLARITY/URINE CLEAR (CLEAR); COLOR,URINE YELLOW (YELLOW); GLUCOSE,URINE 2+ (NEGATIVE); KETONES,URINE 1+ (NEGATIVE); LEUKOCYTE ESTERASE ,URINE NEGATIVE (NEGATIVE); NITRITE, URINE NEGATIVE (NEGATIVE); PROTEIN URINE 1+ (NEGATIVE); UROBILINOGEN,URINE 0.2 (0.2-1.0)
[2021-07-22 14:21] LABS: BACTERIA,URINE FEW /HPF (None Seen); MUCUS,URINE 1+ /LPF (None Seen); RBC,URINE 20-50 /HPF (0-3); WBC,URINE 0-3 /HPF (0-3)
[2021-07-22] MEDS ORDERED: POTASSIUM CHLORIDE 20 MEQ TAB.PRT.SR PO ONE (14:45)
[2021-07-22] MEDS ORDERED: COLCHICINE 0.6 MG TABLET PO SCH (14:45)
[2021-07-22] MEDS ORDERED: PANTOPRAZOLE SODIUM 40 MG/VIAL (PROTONIX) IVP ONE (14:45)
[2021-07-22] MEDS ORDERED: MAG-AL HYDROX/SIMETH 30 ML UDC PO PRN (14:45)
[2021-07-22] MEDS ORDERED: chlordiazePOXIDE HCL 25 MG CAPSULE PO ONE (14:45)
[2021-07-22] MEDS: LORazepam 1 MG TABLET PO SCH (19:49)
[2021-07-22 20:58] VITALS: BP_SYST 175
[2021-07-22] MEDS ORDERED: LORazepam 1 MG TABLET PO SCH (21:00)
[2021-07-22] MEDS ORDERED: chlordiazePOXIDE HCL 25 MG CAPSULE PO SCH (21:00)
[2021-07-23] VITALS: BP_SYST 158
[2021-07-23] MEDS ORDERED: THIAMINE HCL 100 MG, MAGNESIUM SULFATE 1 GM in NS 100 ML IV ONE (00:15)
[2021-07-23] MEDS: LORazepam 1 MG TABLET PO SCH ×5 (00:26→21:00)
[2021-07-23] MEDS: POTASSIUM CHLORIDE 20 MEQ TAB.PRT.SR PO SCH ×3 (00:34→22:42)
[2021-07-23] MEDS: PANTOPRAZOLE SODIUM 40 MG/VIAL (PROTONIX) IVP SCH ×3 (00:35→22:40)
[2021-07-23] MEDS: LORazepam 2 MG/ML VIAL IVP PRN ×3 (03:27→14:52)
[2021-07-23] MEDS ORDERED: DIPHENHYDRAMINE INJ 50 MG/ML VIAL IVP PRN (05:15)
[2021-07-23] MEDS ORDERED: HALOPERIDOL LACTATE 5 MG/ML VIAL IM PRN (05:15)
[2021-07-23] MEDS ORDERED: TAMSULOSIN HCL 0.4 MG CAP PO SCH (05:15)
[2021-07-23 07:04] LABS: INR 1.1 (0.80-1.20); PROTHROMBIN TIME 11.8 SECS (9.5-12.5)
[2021-07-23 07:22] LABS: EOSINOPHILS # (AUTO) 0.1 K/uL (0.0-0.4); EOSINOPHILS % (AUTO) 1.2 % (0.0-4.0); HEMATOCRIT 36.1 % (36-54); HEMOGLOBIN 12.1 g/dL (14.0-18.0); LYMPHOCYTES # (AUTO) 1.1 K/uL (1.0-5.5); LYMPHOCYTES % (AUTO) 22.9 % (20.5-51.5); MEAN CORPUSCULAR HEMOGLOBIN 35 pg (27-31); MEAN CORPUSCULAR HGB CONC 34 % (32-36); MEAN CORPUSCULAR VOLUME 105 fL (79.0-98.0); MONOCYTES # (AUTO) 0.7 K/uL (0.0-1.0); MONOCYTES % (AUTO) 13.7 % (1.7-9.3); PLATELET COUNT (AUTO) 86 K/uL (130-430); RED BLOOD CELL COUNT(AUTO) 3.43 MIL/uL (4.2-6.2); RED CELL DISTRIBUTION WIDTH 13.6 % (9.0-15.0); WHITE BLOOD COUNT (AUTO) 4.8 K/uL (4.8-10.8)
[2021-07-23] MEDS ORDERED: CANAGLIFLOZIN 100 MG TABLET PO SCH (09:00)
[2021-07-23 09:28] LABS: ALBUMIN 3.2 g/dL (3.4-4.8); CALCIUM 9.1 mg/dL (8.4-11.0); CREATININE 0.96 mg/dL (0.55-1.30); POTASSIUM 3.5 mmol/L (3.5-5.1); TOTAL BILIRUBIN 2.1 mg/dL (0.0-1.0)
[2021-07-23 09:43] LABS: BASOPHILS % (AUTO) 0.2 % (0.0-2.0)
[2021-07-23] MEDS: ASPIRIN 81 MG TAB.CHEW PO SCH (10:28)
[2021-07-23] MEDS: NEPHROVITE, (FOLIC ACID/VITAMIN B COMP W-C 1 TAB) PO SCH (10:28)
[2021-07-23] MEDS: LOSARTAN POTASSIUM 50 MG TABLET (COZAAR) PO SCH (10:29)
[2021-07-23] MEDS: THIAMINE HCL 100 MG TABLET PO SCH (10:30)
[2021-07-23] MEDS: amLODIPine BESYLATE 5 MG TABLET PO SCH (10:30)
[2021-07-23 10:31] VITALS: BP_SYST 159
[2021-07-23] MEDS: TAMSULOSIN HCL 0.4 MG CAP PO SCH ×2 (10:31→21:00)
[2021-07-23] MEDS ORDERED: METOPROLOL TARTRATE 25 MG TABLET PO ONE (10:45)
[2021-07-23 13:06] VITALS: BP_SYST 168
[2021-07-23] MEDS ORDERED: DEXTROSE 50% JECT 50 ML DISP.SYRIN IVP PRN (16:15)
[2021-07-23 18:17] VITALS: BP_SYST 140
[2021-07-23 21:00] VITALS: BP_SYST 123
[2021-07-23] MEDS ORDERED: CARVEDILOL 6.25 MG TABLET (COREG) PO SCH (21:00)
[2021-07-23] MEDS ORDERED: METOPROLOL TARTRATE 25 MG TABLET PO SCH (21:00)
[2021-07-23] MEDS: INSULIN REGULAR, HUMAN 100 UNITS/ML, 10 ML VIAL (humuLIN R) SUBCUT PRN (23:53)
[2021-07-24 00:53] VITALS: BP_SYST 150
[2021-07-24 06:46] LABS: BASOPHILS % (AUTO) 0.3 % (0.0-2.0); EOSINOPHILS % (AUTO) 0.2 % (0.0-4.0); HEMATOCRIT 36.9 % (36-54); HEMOGLOBIN 12.6 g/dL (14.0-18.0); LYMPHOCYTES # (AUTO) 0.8 K/uL (1.0-5.5); MEAN CORPUSCULAR HEMOGLOBIN 35 pg (27-31); MEAN CORPUSCULAR HGB CONC 34 % (32-36); MEAN CORPUSCULAR VOLUME 103 fL (79.0-98.0); MONOCYTES % (AUTO) 10.4 % (1.7-9.3); NEUTROPHILS # (AUTO) 7.7 K/uL (1.8-7.7); NEUTROPHILS % (AUTO) 81.1 % (40.0-70.0); PLATELET COUNT (AUTO) 78 K/uL (130-430); RED CELL DISTRIBUTION WIDTH 13.6 % (9.0-15.0); WHITE BLOOD COUNT (AUTO) 9.5 K/uL (4.8-10.8)
[2021-07-24 07:34] LABS: ALBUMIN 2.9 g/dL (3.4-4.8); CALCIUM 9.1 mg/dL (8.4-11.0); CREATININE 1.35 mg/dL (0.55-1.30); POTASSIUM 3.4 mmol/L (3.5-5.1); TOTAL BILIRUBIN 2.8 mg/dL (0.0-1.0)
[2021-07-24 08:00] VITALS: BP_SYST 132
[2021-07-24] MEDS: NEPHROVITE, (FOLIC ACID/VITAMIN B COMP W-C 1 TAB) PO SCH (09:02)
[2021-07-24] MEDS: PANTOPRAZOLE SODIUM 40 MG/VIAL (PROTONIX) IVP SCH ×2 (09:02→20:30)
[2021-07-24] MEDS: ASPIRIN 81 MG TAB.CHEW PO SCH (09:02)
[2021-07-24] MEDS: TAMSULOSIN HCL 0.4 MG CAP PO SCH ×2 (09:03→20:30)
[2021-07-24] MEDS: amLODIPine BESYLATE 5 MG TABLET PO SCH (09:03)
[2021-07-24] MEDS: LORazepam 1 MG TABLET PO SCH ×3 (09:04→17:00)
[2021-07-24] MEDS: LOSARTAN POTASSIUM 50 MG TABLET (COZAAR) PO SCH (09:04)
[2021-07-24] MEDS: POTASSIUM CHLORIDE 20 MEQ TAB.PRT.SR PO SCH ×2 (09:04→20:30)
[2021-07-24] MEDS: METOPROLOL TARTRATE 50 MG TABLET PO SCH ×2 (09:05→20:31)
[2021-07-24] MEDS: THIAMINE HCL 100 MG TABLET PO SCH (09:05)
[2021-07-24] MEDS: INSULIN REGULAR, HUMAN 100 UNITS/ML, 10 ML VIAL (humuLIN R) SUBCUT PRN ×3 (12:13→20:43)
[2021-07-24 12:16] VITALS: BP_SYST 140
[2021-07-24] MEDS ORDERED: FOLIC ACID 1 MG, THIAMINE HCL 100 MG, MAGNESIUM SULFATE 1 GM, MVI 10 ML in NACL 0.9% 1,... IV SCH (14:00)
[2021-07-24] MEDS ORDERED: POTASSIUM CHLORIDE 20 MEQ TAB.PRT.SR PO ONE (14:00)
[2021-07-24] MEDS: THIAMINE HCL 100 MG, MAGNESIUM SULFATE 1 GM in NS 100 ML IV SCH (15:21)
[2021-07-24] MEDS: FOLIC ACID 1 MG, MVI 10 ML in NACL 0.9% 1,000 ML IV SCH (15:21)
[2021-07-24 16:41] VITALS: BP_SYST 141
[2021-07-24 20:26] VITALS: BP_SYST 123
[2021-07-24] MEDS ORDERED: LORazepam 1 MG TABLET PO SCH (21:00)
[2021-07-25 00:22] VITALS: BP_SYST 121
[2021-07-25] MEDS: LORazepam 1 MG TABLET PO SCH ×3 (02:13→20:54)
[2021-07-25 06:33] LABS: BASOPHILS % (AUTO) 0.3 % (0.0-2.0); EOSINOPHILS # (AUTO) 0.2 K/uL (0.0-0.4); EOSINOPHILS % (AUTO) 1.2 % (0.0-4.0); HEMATOCRIT 34.7 % (36-54); HEMOGLOBIN 11.5 g/dL (14.0-18.0); LYMPHOCYTES % (AUTO) 7.2 % (20.5-51.5); MEAN CORPUSCULAR HEMOGLOBIN 35 pg (27-31); MEAN CORPUSCULAR HGB CONC 33 % (32-36); MEAN CORPUSCULAR VOLUME 104 fL (79.0-98.0); MONOCYTES # (AUTO) 1.2 K/uL (0.0-1.0); NEUTROPHILS % (AUTO) 82.3 % (40.0-70.0); PLATELET COUNT (AUTO) 79 K/uL (130-430); RED BLOOD CELL COUNT(AUTO) 3.33 MIL/uL (4.2-6.2); RED CELL DISTRIBUTION WIDTH 13.6 % (9.0-15.0); WHITE BLOOD COUNT (AUTO) 13.3 K/uL (4.8-10.8)
[2021-07-25 07:45] VITALS: BP_SYST 110
[2021-07-25 08:35] LABS: ALBUMIN 2.5 g/dL (3.4-4.8); CALCIUM 9.6 mg/dL (8.4-11.0); CREATININE 1.16 mg/dL (0.55-1.30); POTASSIUM 4.3 mmol/L (3.5-5.1); TOTAL BILIRUBIN 1.8 mg/dL (0.0-1.0)
[2021-07-25] MEDS: PANTOPRAZOLE SODIUM 40 MG/VIAL (PROTONIX) IVP SCH ×2 (10:07→20:56)
[2021-07-25] MEDS: THIAMINE HCL 100 MG TABLET PO SCH (10:09)
[2021-07-25] MEDS: ASPIRIN 81 MG TAB.CHEW PO SCH (10:09)
[2021-07-25] MEDS: TAMSULOSIN HCL 0.4 MG CAP PO SCH ×2 (10:10→20:55)
[2021-07-25] MEDS: NEPHROVITE, (FOLIC ACID/VITAMIN B COMP W-C 1 TAB) PO SCH (10:10)
[2021-07-25] MEDS: POTASSIUM CHLORIDE 20 MEQ TAB.PRT.SR PO SCH ×2 (10:10→20:54)
[2021-07-25] MEDS: LOSARTAN POTASSIUM 50 MG TABLET (COZAAR) PO SCH (10:14)
[2021-07-25] MEDS: METOPROLOL TARTRATE 50 MG TABLET PO SCH ×2 (10:16→20:55)
[2021-07-25] MEDS: amLODIPine BESYLATE 5 MG TABLET PO SCH (10:17)
[2021-07-25] MEDS: INSULIN REGULAR, HUMAN 100 UNITS/ML, 10 ML VIAL (humuLIN R) SUBCUT PRN ×2 (11:27→20:56)
[2021-07-25 12:08] VITALS: BP_SYST 101
[2021-07-25] MEDS: THIAMINE HCL 100 MG, MAGNESIUM SULFATE 1 GM in NS 100 ML IV SCH (16:21)
[2021-07-25] MEDS: FOLIC ACID 1 MG, MVI 10 ML in NACL 0.9% 1,000 ML IV SCH (16:22)
[2021-07-25 16:32] VITALS: BP_SYST 106
[2021-07-25] MEDS ORDERED: FOLIC ACID 1 MG, THIAMINE HCL 100 MG, MAGNESIUM SULFATE 1 GM, MVI 10 ML in NACL 0.9% 1,... IV SCH (16:45)
[2021-07-25 20:59] VITALS: BP_SYST 143
[2021-07-26 01:28] VITALS: BP_SYST 139
[2021-07-26 07:03] LABS: BASOPHILS # (AUTO) 0.1 K/uL (0.0-0.2); BASOPHILS % (AUTO) 0.6 % (0.0-2.0); EOSINOPHILS # (AUTO) 0.1 K/uL (0.0-0.4); EOSINOPHILS % (AUTO) 0.8 % (0.0-4.0); HEMATOCRIT 34.3 % (36-54); HEMOGLOBIN 11.7 g/dL (14.0-18.0); LYMPHOCYTES # (AUTO) 0.7 K/uL (1.0-5.5); LYMPHOCYTES % (AUTO) 6.4 % (20.5-51.5); MEAN CORPUSCULAR HEMOGLOBIN 35 pg (27-31); MEAN CORPUSCULAR HGB CONC 34 % (32-36); MEAN CORPUSCULAR VOLUME 104 fL (79.0-98.0); MONOCYTES # (AUTO) 1.3 K/uL (0.0-1.0); NEUTROPHILS # (AUTO) 8.7 K/uL (1.8-7.7); NEUTROPHILS % (AUTO) 80.2 % (40.0-70.0); PLATELET COUNT (AUTO) 104 K/uL (130-430); WHITE BLOOD COUNT (AUTO) 10.9 K/uL (4.8-10.8)
[2021-07-26 08:18] VITALS: BP_SYST 165
[2021-07-26 08:56] LABS: ALBUMIN 2.6 g/dL (3.4-4.8); CALCIUM 9.4 mg/dL (8.4-11.0); CREATININE 1.09 mg/dL (0.55-1.30); POTASSIUM 4.4 mmol/L (3.5-5.1); TOTAL BILIRUBIN 1.8 mg/dL (0.0-1.0)
[2021-07-26] MEDS: PANTOPRAZOLE SODIUM 40 MG/VIAL (PROTONIX) IVP SCH ×2 (10:09→21:03)
[2021-07-26] MEDS: POTASSIUM CHLORIDE 20 MEQ TAB.PRT.SR PO SCH ×2 (10:09→21:03)
[2021-07-26] MEDS: NEPHROVITE, (FOLIC ACID/VITAMIN B COMP W-C 1 TAB) PO SCH (10:10)
[2021-07-26] MEDS: METOPROLOL TARTRATE 50 MG TABLET PO SCH ×2 (10:10→21:07)
[2021-07-26] MEDS: amLODIPine BESYLATE 5 MG TABLET PO SCH (10:10)
[2021-07-26] MEDS: LORazepam 1 MG TABLET PO SCH ×2 (10:11→21:04)
[2021-07-26] MEDS: ASPIRIN 81 MG TAB.CHEW PO SCH (10:11)
[2021-07-26] MEDS: TAMSULOSIN HCL 0.4 MG CAP PO SCH ×2 (10:11→21:03)
[2021-07-26] MEDS: THIAMINE HCL 100 MG TABLET PO SCH (10:11)
[2021-07-26] MEDS: LOSARTAN POTASSIUM 50 MG TABLET (COZAAR) PO SCH (10:12)
[2021-07-26 12:22] VITALS: BP_SYST 155
[2021-07-26] MEDS: INSULIN REGULAR, HUMAN 100 UNITS/ML, 10 ML VIAL (humuLIN R) SUBCUT PRN ×2 (12:52→21:08)
[2021-07-26] MEDS: FOLIC ACID 1 MG, MVI 10 ML in NACL 0.9% 1,000 ML IV SCH (15:13)
[2021-07-26] MEDS: THIAMINE HCL 100 MG, MAGNESIUM SULFATE 1 GM in NS 100 ML IV SCH (15:13)
[2021-07-26 16:42] VITALS: BP_SYST 157
[2021-07-26 21:06] VITALS: BP_SYST 140
[2021-07-26] MEDS: LORazepam 2 MG/ML VIAL IVP PRN (23:46)
[2021-07-27 00:20] VITALS: BP_SYST 133
[2021-07-27 00:25] LABS: CLARITY/URINE CLEAR (CLEAR); COLOR,URINE YELLOW (YELLOW); PH,URINE 5.5 (5.0-8.0); PROTEIN URINE NEGATIVE (NEGATIVE)
[2021-07-27 00:26] LABS: BILIRUBIN,URINE 1+ (NEGATIVE); GLUCOSE,URINE 3+ (NEGATIVE); KETONES,URINE 3+ (NEGATIVE)
[2021-07-27 00:27] LABS: BLOOD, URINE TRACE (NEGATIVE); LEUKOCYTE ESTERASE ,URINE NEGATIVE (NEGATIVE); NITRITE, URINE NEGATIVE (NEGATIVE); UROBILINOGEN,URINE 0.2 (0.2-1.0)
[2021-07-27 00:29] LABS: RBC,URINE 0-3 /HPF (0-3)
[2021-07-27 00:30] LABS: BACTERIA,URINE RARE /HPF (None Seen); WBC,URINE 0-3 /HPF (0-3)
[2021-07-27 06:49] LABS: BASOPHILS % (AUTO) 0.5 % (0.0-2.0); EOSINOPHILS # (AUTO) 0.1 K/uL (0.0-0.4); EOSINOPHILS % (AUTO) 1.3 % (0.0-4.0); HEMATOCRIT 33.3 % (36-54); HEMOGLOBIN 11.1 g/dL (14.0-18.0); LYMPHOCYTES % (AUTO) 9.6 % (20.5-51.5); MEAN CORPUSCULAR HEMOGLOBIN 35 pg (27-31); MEAN CORPUSCULAR HGB CONC 33 % (32-36); MEAN CORPUSCULAR VOLUME 104 fL (79.0-98.0); MONOCYTES # (AUTO) 1.7 K/uL (0.0-1.0); MONOCYTES % (AUTO) 16.7 % (1.7-9.3); NEUTROPHILS # (AUTO) 7.1 K/uL (1.8-7.7); NEUTROPHILS % (AUTO) 71.9 % (40.0-70.0); PLATELET COUNT (AUTO) 120 K/uL (130-430); RED BLOOD CELL COUNT(AUTO) 3.21 MIL/uL (4.2-6.2); RED CELL DISTRIBUTION WIDTH 13.9 % (9.0-15.0); WHITE BLOOD COUNT (AUTO) 9.9 K/uL (4.8-10.8)
[2021-07-27 08:26] VITALS: BP_SYST 137
[2021-07-27 08:38] LABS: ALBUMIN 2.5 g/dL (3.4-4.8); CALCIUM 9.3 mg/dL (8.4-11.0); CREATININE 0.98 mg/dL (0.55-1.30); POTASSIUM 3.9 mmol/L (3.5-5.1); TOTAL BILIRUBIN 1.7 mg/dL (0.0-1.0)
[2021-07-27] MEDS: PANTOPRAZOLE SODIUM 40 MG/VIAL (PROTONIX) IVP SCH ×2 (08:42→20:11)
[2021-07-27] MEDS: TAMSULOSIN HCL 0.4 MG CAP PO SCH ×2 (08:44→20:09)
[2021-07-27] MEDS: LOSARTAN POTASSIUM 50 MG TABLET (COZAAR) PO SCH (08:44)
[2021-07-27] MEDS: LORazepam 1 MG TABLET PO SCH ×2 (08:44→20:10)
[2021-07-27] MEDS: THIAMINE HCL 100 MG TABLET PO SCH (08:45)
[2021-07-27] MEDS: NEPHROVITE, (FOLIC ACID/VITAMIN B COMP W-C 1 TAB) PO SCH (08:45)
[2021-07-27] MEDS: METOPROLOL TARTRATE 50 MG TABLET PO SCH ×2 (08:45→20:12)
[2021-07-27] MEDS: POTASSIUM CHLORIDE 20 MEQ TAB.PRT.SR PO SCH ×2 (08:46→20:08)
[2021-07-27] MEDS: ASPIRIN 81 MG TAB.CHEW PO SCH (08:46)
[2021-07-27] MEDS: amLODIPine BESYLATE 5 MG TABLET PO SCH (08:46)
[2021-07-27 12:21] VITALS: BP_SYST 149
[2021-07-27] MEDS: INSULIN REGULAR, HUMAN 100 UNITS/ML, 10 ML VIAL (humuLIN R) SUBCUT PRN (12:24)
[2021-07-27] MEDS: THIAMINE HCL 100 MG, MAGNESIUM SULFATE 1 GM in NS 100 ML IV SCH (14:00)
[2021-07-27] MEDS: FOLIC ACID 1 MG, MVI 10 ML in NACL 0.9% 1,000 ML IV SCH (14:00)
[2021-07-27] MEDS ORDERED: TAMS0.4C96 PO (15:17)
[2021-07-27] MEDS ORDERED: METO-442 PO (15:17)
[2021-07-27] MEDS ORDERED: AMLO5TAB4 PO (15:17)
[2021-07-27] MEDS ORDERED: THIA100T73 PO (15:17)
[2021-07-27] MEDS ORDERED: LIB10 PO (15:35)
[2021-07-27 16:30] VITALS: BP_SYST 137
[2021-07-27 18:05] VITALS: BP_SYST 136
== END 2021-07-27 21:45 | disposition home or self-care (01) | DRG 433 ==
LOC: SED 07:52 → STU 11:09
PROVIDERS: ADMIT Internal Medicine; ATTEND Internal Medicine
DX: K70.10 Alcoholic hepatitis without ascites (principal); E44.1 Mild protein-calorie malnutrition; D61.818 Other pancytopenia; F10.131 Alcohol abuse with withdrawal delirium; D75.89 Other specified diseases of blood and blood-forming organs; M10.9 Gout, unspecified; E87.6 Hypokalemia; Y90.9 Presence of alcohol in blood, level not specified; E11.9 Type 2 diabetes mellitus without complications; D64.9 Anemia, unspecified; I10 Essential (primary) hypertension; Z20.822 Contact with and (suspected) exposure to COVID-19; Z79.82 Long term (current) use of aspirin; Z79.899 Other long term (current) drug therapy; Z79.2 Long term (current) use of antibiotics; Z68.22 Body mass index [BMI] 22.0-22.9, adult
CPT/HCPCS: 36415; 70450-TC; 71045; 72100-TC; 76376; 76700-TC; 80053; 81000; 82550; 82962; 83735; 84484; 85025; 85610-TC; 93005; 96361; 96374; 97110-GP; 97116-GP; 97530-GP; 99285; C9113; G0378; G0482; J1200; J1630; J1815; J2060; J3411; J3475; J3490; J7030